=== PATIENT | female | born 1980 | race Caucasian/White ===

== ENCOUNTER 2017-06-27 09:08 | Emergency (ER) | payer OTHER, SELFPAY | END 2017-06-27 10:50 | disposition home or self-care (01) | LOC: ERS 09:08 | DX: K04.7 Periapical abscess without sinus (principal); K02.9 Dental caries, unspecified | CPT/HCPCS: 99283 ==

== ENCOUNTER 2018-08-10 15:15 | Emergency (ER) | payer SELFPAY ==
[2018-08-10 15:55] LABS: #Monocytes 0.3 thou/uL (0.11-0.59); %Basophils 0.3 % (0.0-1.0); %Eosinophils 0.7 % (0.0-10.0); %Lymphocytes 31.8 % (21.0-51.0); %Monocytes 3.9 % (0.0-10.0); %Neutrophils 63.3 % (42.0-75.0); Hemoglobin 14.2 g/dL (12.0-16.0); Mean Corpuscular Hemoglobin 32.3 pg (27.0-31.0); Mean Corpuscular Volume 97.9 fL (78.0-98.0); Mean Platelet Volume 7.1 fL (7.4-10.4); Platelet Count 332 thou/uL (130-400); RBC Distribution Width 11.3 % (11.5-14.5); White Blood Cell (WBC) Count 6.4 thou/uL (4.8-10.8)
[2018-08-10 15:59] LABS: BHCG - Serum Negative (NEGATIVE); Pregs Control Background? CLEAR/WHITE (CLR/WHITE); Pregs Control Bar Appear? YES (CONTROL BAR)
[2018-08-10 16:17] LABS: ALT (SGPT) 12 U/L (8-55); AST (SGOT) 14 U/L (5-34); Albumin 4.4 g/dL (3.5-5.0); Alkaline Phosphatase 75 U/L (40-150); Anion Gap 15 mmol/L (10-20); BUN (Urea Nitrogen) 20 mg/dL (7.0-18.7); Bilirubin, Total 0.7 mg/dL (0.2-1.2); Calc. Creatinine Clearance 0 mL/min (70-130); Calcium 9.2 mg/dL (7.8-10.44); Carbon Dioxide 27 mmol/L (22-29); Chloride 98 mmol/L (98-107); Estimated GFR-MDRD 58; Globulin 3.6 g/dL (2.4-3.5); Glucose 76 mg/dL (70-105); Lipase 9 U/L (8-78); Potassium 3.6 mmol/L (3.5-5.1); Sodium 136 mmol/L (136-145)
[2018-08-10 16:22] LABS: Troponin I Less than 0.010 ng/mL (< 0.028)
--- NOTE | 2018-08-10 16:43 | RAD ---
SINGLE VIEW CHEST: Date: 08/10/18 COMPARISON: 05/01/17. HISTORY: Chest pain and weakness. FINDINGS: Single view of the chest shows a normal sized cardiomediastinal silhouette. There is no evidence of c onsolidation, mass, or pleural effusion. The bones are unremarkable. IMPRESSION: No evidence of acute cardiopulmonary disease. POS: [facility]
== END 2018-08-10 17:08 | disposition home or self-care (01) ==
LOC: ERS 15:15
DX: R07.89 Other chest pain (principal)
CPT/HCPCS: 36415; 71045; 80053; 82553; 83690; 84484; 84703; 85025; 93005

== ENCOUNTER 2019-04-09 18:04 | Emergency (ER) | payer SELFPAY ==
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
== END 2019-04-09 19:40 | disposition home or self-care (01) ==
LOC: ERS 18:04
DX: S63.501A Unspecified sprain of right wrist, initial encounter (principal); X50.1XXA Overexertion from prolonged static or awkward postures, initial encounter

== ENCOUNTER 2020-01-04 17:56 | Emergency (ER) | payer OTHER, SELFPAY ==
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
== END 2020-01-04 19:39 | disposition home or self-care (01) ==
LOC: ERS 17:56
DX: S93.402A Sprain of unspecified ligament of left ankle, initial encounter (principal); S39.012A Strain of muscle, fascia and tendon of lower back, initial encounter; V89.2XXA Person injured in unspecified motor-vehicle accident, traffic, initial encounter

== ENCOUNTER 2020-09-01 18:02 | Emergency (ER) | payer OTHER, SELFPAY ==
--- NOTE | 2020-09-01 18:46 | ULT ---
Exam:Rightlower extremity venous ultrasound with Doppler HISTORY: Rightlower extremity swelling and pain COMPARISON: None TECHNIQUE: Grayscale, color flow, Doppler imaging and spectral wave muscle performed right lower extr emity venous system FINDINGS: There is compressibility, presence of flow and augmentation in the common femoral vein, femoral vein and popliteal vein. There is flow in the posterior tibial vein. There is flow in the greater saphenous vein and profunda femoral vein IMPRESSION: No thrombus in the right lower extremity deep venous system.
== END 2020-09-01 19:28 | disposition home or self-care (01) ==
LOC: ERS 18:02
DX: L03.115 Cellulitis of right lower limb (principal)

== ENCOUNTER 2021-08-21 01:43 | Emergency (ER) | payer SELFPAY ==
[2021-08-21] MEDS ORDERED: cefTRIAXone\\ROCEPHIN 500 MG VIAL ONE (02:21)
[2021-08-21] MEDS ORDERED: Lidocaine 1% PF 5 ML VIAL ONE (02:21)
[2021-08-21 20:49] LABS: Chlamydia by PCR Not Detected (NotDetected); GC by PCR Not Detected (NotDetected)
== END 2021-08-21 02:35 | disposition home or self-care (01) ==
LOC: ERS 01:43
DX: A74.9 Chlamydial infection, unspecified (principal)
CPT/HCPCS: 87491; 87591; 96372; 99283; J0696

== ENCOUNTER 2021-09-18 17:14 | Emergency (ER) | payer SELFPAY ==
[2021-09-18] MEDS ORDERED: Ketorolac Tromethamine 30 MG/ML VIAL ONE (19:30)
== END 2021-09-18 19:30 | disposition left against medical advice (07) ==
LOC: ERS 17:14
DX: J02.8 Acute pharyngitis due to other specified organisms (principal)
CPT/HCPCS: 87081; 87430; 99282; J1885

== ENCOUNTER 2022-12-27 17:30 | Emergency (ER) | payer SELFPAY | END 2022-12-27 17:58 | disposition home or self-care (01) | LOC: ERS 17:30 | DX: L03.116 Cellulitis of left lower limb (principal); F17.210 Nicotine dependence, cigarettes, uncomplicated | CPT/HCPCS: 99283 ==